=== PATIENT | female | born 1935 | race Caucasian/White ===

== ENCOUNTER 2016-05-05 11:30 | Inpatient (IN) | payer MEDICARE, OTHER ==
[~2016-05-05] VITALS: Ht 165.1 cm; Wt 68.0 kg
[2016-05-05] VITALS (7 sets, daily range): BP systolic 135–189; BP diastolic 60–79; PULSE 64–74; RESP 15–20; TEMP 97–97.8; O2SAT 94–98
[2016-05-05] MEDS ORDERED: MULTTAB24 PO (14:36)
[2016-05-05] MEDS ORDERED: CALC1WAF CHEW (14:36)
[2016-05-05] MEDS ORDERED: CELE200C PO (14:36)
[2016-05-05] MEDS ORDERED: MELO-1 PO (14:36)
[2016-05-05] MEDS ORDERED: ASPI-110 PO (14:36)
[2016-05-05] MEDS ORDERED: ATEN25TA PO (14:36)
[2016-05-05] MEDS ORDERED: PRIL20CA9 PO (14:36)
--- NOTE | 2016-05-05 14:41 | PD ---
HPI Chief Complaint: Abnormal Results Time Seen by Provider: 14:24 Travel History International Travel<30 days: No Contact w/Intl Traveler<30days: No Traveled to known affect area: No History of Present Illness HPI The patient was seen and examined in the presence of the nurse. This patient had an outpatient blood draw this morning and received a call from her physician that her blood count was around 7 and she should go directly to the emergency room. He has not noticed any melena or bleeding. Denies history of GI bleed. She had a colonoscopy many years ago but no major abnormality she can recall. sHe drinks very little alcohol and takes no blood thinners. Symptoms severity is mild. No alleviating factors. Duration one day PFSH Social History Alcohol Use: No Tobacco Use: No Substance Use: No Allergies-Medications (Allergen,Severity, Reaction): Coded Allergies: No Known Allergies (Unverified , 05/05/16) Reported Meds & Prescriptions Reported Meds & Active Scripts Active Reported Atenolol 25 Mg Tab 25 Mg PO DAILY Meloxicam 15 Mg Tab 15 Mg PO DAILY Celebrex (Celecoxib) 200 Mg Cap 200 Mg PO BID Prilosec (Omeprazole) 20 Mg Cap 20 Mg PO DAILY Multi For Her (Multiple Vitamins W/ Minerals) 1 Tab Tab 1 Tab PO DAILY Aspirin 81 (Aspirin) 81 Mg Tabdr 81 Mg PO DAILY Calcium Carbonate 500 Mg Wafr 500 Mg CHEW 500 mg calcium carbonate (200 mg elemental calcium) Review of Systems General / Constitutional: No: Fever Eyes: No: Visual changes HENT: No: Headaches Cardiovascular: No: Chest Pain or Discomfort Respiratory: No: Shortness of Breath Gastrointestinal: No: Abdominal Pain Genitourinary: No: Dysuria Musculoskeletal: No: Pain Skin: No Rash Neurologic: No: Weakness Psychiatric: No: Depression Endocrine: No: Polydipsia Hematologic/Lymphatic: No: Easy Bruising Physical Exam Narrative GENERAL: Well-nourished, well-developed patient in no apparent distress. SKIN: Warm and dry. HEAD: Atraumatic. Normocephalic. EYES: Pupils equal and round. No scleral icterus. No injection or drainage. ENT: No nasal bleeding or discharge. Mucous membranes pink and moist. NECK: Trachea midline. No JVD. CARDIOVASCULAR: Regular rate and rhythm. No murmur appreciated. RESPIRATORY: No accessory muscle use. Clear to auscultation. Breath sounds equal bilaterally. GASTROINTESTINAL: Abdomen soft, non-tender, nondistended. Hepatic and splenic margins not palpable. MUSCULOSKELETAL: No obvious deformities. No clubbing. No cyanosis. No edema. NEUROLOGICAL: Awake and alert. No obvious cranial nerve deficits. Motor grossly within normal limits. Normal speech. PSYCHIATRIC: Appropriate mood and affect; insight and judgment normal. Rectal: Normal tone, brown stool is noted. No external hemorrhoid or fissure Data Data Last Documented VS Vital Signs Date Time Temp Pulse Resp B/P Pulse Ox O2 Delivery O2 Flow Rate FiO2 05/05/16 11:33 97.7 73 15 189/79 97 Orders Basic Metabolic Panel (Bmp) (05/05/16 14:33) Complete Blood Count With Diff (05/05/16 14:33) Prothrombin Time / Inr (Pt) (05/05/16 14:33) Act Partial Throm Time (Ptt) (05/05/16 14:33) Iv Access Insert/Monitor (05/05/16 14:33) Pantoprazole Inj (Protonix Inj) (05/05/16 14:45) Sodium Chloride 0.9% Flush (Ns Flush) (05/05/16 14:45) Red Blood Cells (Rbc) (05/05/16 16:16) Blood Product Administration .UPON TRANSFUSION (05/05/16 16:16) Sodium Chlor 0.9% 250 Ml Inj (Ns 250 Ml (05/05/16 16:30) Type And Screen (05/05/16 16:16) Labs Laboratory Tests Test 05/05/16 14:40 White Blood Count 3.6 TH/MM3 Red Blood Count 3.07 MIL/MM3 Hemoglobin 7.2 GM/DL Hematocrit 23.3 % Mean Corpuscular Volume 76.0 FL Mean Corpuscular Hemoglobin 23.3 PG Mean Corpuscular Hemoglobin 30.6 % Concent Red Cell Distribution Width 16.6 % Platelet Count 237 TH/MM3 Mean Platelet Volume 9.5 FL Neutrophils (%) (Auto) 57.6 % Lymphocytes (%) (Auto) 21.6 % Monocytes (%) (Auto) 14.6 % Eosinophils (%) (Auto) 5.1 % Basophils (%) (Auto) 1.1 % Neutrophils # (Auto) 2.1 TH/MM3 Lymphocytes # (Auto) 0.8 TH/MM3 Monocytes # (Auto) 0.5 TH/MM3 Eosinophils # (Auto) 0.2 TH/MM3 Basophils # (Auto) 0.0 TH/MM3 CBC Comment AUTO DIFF Differential Comment AUTO DIFF CONFIRMED Platelet Estimate NORMAL Platelet Morphology Comment NORMAL Tear Drop Cells 1+ Ovalocytes 2+ Prothrombin Time 10.7 SEC Prothromb Time International 1.0 RATIO Ratio Activated Partial 23.8 SEC Thromboplast Time Sodium Level 139 MEQ/L Potassium Level 4.1 MEQ/L Chloride Level 105 MEQ/L Carbon Dioxide Level 27.9 MEQ/L Anion Gap 6 MEQ/L Blood Urea Nitrogen 23 MG/DL Creatinine 1.01 MG/DL Estimat Glomerular Filtration 52 ML/MIN Rate Random Glucose 105 MG/DL Calcium Level 8.5 MG/DL MDM Medical Decision Making Medical Screen Exam Complete: Yes Emergency Medical Condition: Yes Medical Record Reviewed: Yes Differential Diagnosis Diverticular bleed, internal hemorrhoid, colon cancer Narrative Course I have reviewed the patient's electronic medical record. Patient is never been here before. No prior blood draws on file. IV placed CBC shows hemoglobin of 7.2 Metabolic profile is normal Coagulation studies are normal I've ordered the patient 2 units of packed red cells. She will be admitted for GI bleed, likely upper. I reviewed with hospitalist Diagnosis Primary Impression: GI bleed Qualified Code: K92.2 - Gastrointestinal hemorrhage, unspecified gastrointestinal hemorrhage type Admitting Information Admitting Physician Requests: Admit Karsten Patel MD May 05, 2016 14:41
[2016-05-05] MEDS ORDERED: SODIUM CHLORIDE 0.9% FLUSH 5 ML FLUSH IVF PRN (14:45)
[2016-05-05] MEDS ORDERED: PANTOPRAZOLE SODIUM 40 MG VIAL IVP ONE (14:45)
[2016-05-05 15:12] LABS: AUTOMATED NEUTROPHIL # 2.1 TH/MM3 (1.8-7.7); BASOPHIL % 1.1 % (0.0-2.0); EOSINOPHIL # 0.2 TH/MM3 (0-0.4); EOSINOPHIL % 5.1 % (0.0-4.0); HEMATOCRIT 23.3 % (35.0-46.0); LYMPH % 21.6 % (9.0-44.0); LYMPHOCYTE # 0.8 TH/MM3 (1.0-4.8); MEAN CORPUSCULAR HEMOGLOBIN 23.3 PG (27.0-34.0); MEAN CORPUSCULAR HGB CONC 30.6 % (32.0-36.0); MONO % 14.6 % (0.0-8.0); NEUT % 57.6 % (16.0-70.0); PLATELET COUNT 237 TH/MM3 (150-450); RED BLOOD COUNT 3.07 MIL/MM3 (4.00-5.30); RED CELL DISTRIBUTION WIDTH 16.6 % (11.6-17.2); WHITE BLOOD COUNT 3.6 TH/MM3 (4.0-11.0)
[2016-05-05 15:26] LABS: APTT (PATIENT) 23.8 SEC (24.3-30.1); PROTHROMBIN TIME - PATIENT 10.7 SEC (9.8-11.6)
[2016-05-05 15:30] LABS: HEMO FLAGS AUTO DIFF
[2016-05-05 15:31] LABS: BICARBONATE 27.9 MEQ/L (21.0-32.0); POTASSIUM 4.1 MEQ/L (3.5-5.1)
[2016-05-05 16:06] LABS: OVALOCYTES 2+ (NORMAL); PLATELET ESTIMATE SMEAR NORMAL (NORMAL); PLATELET MORPHOLOGY NORMAL (NORMAL); SCAN/DIFF AUTO DIFF CONFIRMED; TEARDROP RBCS 1+ (NORMAL)
[2016-05-05] MEDS ORDERED: SODIUM CHLOR 0.9% 250 ML INJ 250 ML IV ONE ×2 (16:30→17:00)
--- NOTE | 2016-05-05 16:59 | HHI.HP ---
[facility] Service [facility] Primary Care Physician Aiden Alvarez MD Admission Diagnosis GI BLEED Diagnoses: (1) GI bleed (2) Symptomatic anemia Chief Complaint: Abnormal Lab Travel History International Travel<30 Days: No Contact w/Intl Traveler <30 Da: No Traveled to Known Affected Are: No History of Present Illness 81 year-old female with a history of hypertension was advised to come to the ED for evaluation of abnormal lab including low H&H. Apparently, patient was called in by her PCP secondary to hemoglobin of 7 to seek medical attention. On arrival in the ED, patient was found to have H&H of 7.2/23.3 and denies any GI bleed, hemoptysis, hematuria. However she was positive on fecal occult blood test. Patient states, she has been feeling tired lately and reports some abdominal pain described as not getting without any associated nausea and vomiting. She had a colonoscopy almost 10 years ago and was reported to be normal. She denies any chest pain or shortness of breath. Review of Systems Other Other 12 systems reviewed and negative except for the one mentioned in the history of present illness Past Family Social History Past Medical History Hypertension GERD Past Surgical History Umbilical hernia repair skin cancer removal cataract surgery Reported Medications Atenolol 25 Mg Tab 25 Mg PO DAILY Meloxicam 15 Mg Tab 15 Mg PO DAILY Celebrex (Celecoxib) 200 Mg Cap 200 Mg PO BID Prilosec (Omeprazole) 20 Mg Cap 20 Mg PO DAILY Multi For Her (Multiple Vitamins W/ Minerals) 1 Tab Tab 1 Tab PO DAILY Aspirin 81 (Aspirin) 81 Mg Tabdr 81 Mg PO DAILY Calcium Carbonate 500 Mg Wafr 500 Mg CHEW 500 mg calcium carbonate (200 mg elemental calcium) Allergies: Coded Allergies: No Known Allergies (Unverified , 05/05/16) Family History had heart disease Mother had mets of breast cancer Social History Alcohol Use: No Tobacco Use: No Substance Use: No Physical Exam Vital Signs Vital Signs Date Time Temp Pulse Resp B/P Pulse Ox O2 Delivery O2 Flow Rate FiO2 05/05/16 11:33 97.7 73 15 189/79 97 Physical Exam GENERAL: This is a well-nourished, well-developed patient, in no apparent distress. SKIN: No rashes, ecchymoses or lesions. Cool and dry. HEAD: Atraumatic. Normocephalic. No temporal or scalp tenderness. EYES: Pupils equal round and reactive. Extraocular motions intact. No scleral icterus. No injection or drainage. ENT: Nose without bleeding, purulent drainage or septal hematoma. Throat without erythema, tonsillar hypertrophy or exudate. Uvula midline. Airway patent. NECK: Trachea midline. No JVD or lymphadenopathy. Supple, nontender, no meningeal signs. CARDIOVASCULAR: Regular rate and rhythm without murmurs, gallops, or rubs. RESPIRATORY: Clear to auscultation. Breath sounds equal bilaterally. No wheezes , rales, or rhonchi. GASTROINTESTINAL: Abdomen soft, non-tender, nondistended. No hepato-splenomegaly , or palpable masses. No guarding. MUSCULOSKELETAL: Extremities without clubbing, cyanosis, or edema. No joint tenderness, effusion, or edema noted. No calf tenderness. Negative Homans sign bilaterally. NEUROLOGICAL: Awake and alert. Cranial nerves II through XII intact. Motor and sensory grossly within normal limits. Five out of 5 muscle strength in all muscle groups. Normal speech. Laboratory Laboratory Tests Test 05/05/16 14:40 White Blood Count 3.6 Red Blood Count 3.07 Hemoglobin 7.2 Hematocrit 23.3 Mean Corpuscular Volume 76.0 Mean Corpuscular Hemoglobin 23.3 Mean Corpuscular Hemoglobin 30.6 Concent Red Cell Distribution Width 16.6 Platelet Count 237 Mean Platelet Volume 9.5 Neutrophils (%) (Auto) 57.6 Lymphocytes (%) (Auto) 21.6 Monocytes (%) (Auto) 14.6 Eosinophils (%) (Auto) 5.1 Basophils (%) (Auto) 1.1 Neutrophils # (Auto) 2.1 Lymphocytes # (Auto) 0.8 Monocytes # (Auto) 0.5 Eosinophils # (Auto) 0.2 Basophils # (Auto) 0.0 CBC Comment AUTO DIFF Differential Comment AUTO DIFF CONFIRMED Platelet Estimate NORMAL Platelet Morphology Comment NORMAL Tear Drop Cells 1+ Ovalocytes 2+ Prothrombin Time 10.7 Prothromb Time International 1.0 Ratio Activated Partial 23.8 Thromboplast Time Sodium Level 139 Potassium Level 4.1 Chloride Level 105 Carbon Dioxide Level 27.9 Anion Gap 6 Blood Urea Nitrogen 23 Creatinine 1.01 Estimat Glomerular Filtration 52 Rate Random Glucose 105 Calcium Level 8.5 Result Diagram: 05/05/16 1440 05/05/16 1440 Assessment and Plan Problem List: (1) GI bleed ICD Code: K92.2 Status: Acute (2) Symptomatic anemia ICD Code: D64.9 Status: Acute (3) RA (rheumatoid arthritis) ICD Code: M06.9 Status: Acute Assessment and Plan 81-year-old female with 1-GI bleed: Likely upper GI bleed, consult gastroenterology for evaluation for EGD +/-colonoscopy. Hold aspirin, celecoxib,Mobic . Continue Protonix 40 mg IV twice a day and H&H monitoring. Keep nothing by mouth after midnight 2-Symptomatic anemia: H&H now 7.2/22.3; transfuse 2 units of red blood cell and give Lasix 10 mg 1 IV after transfusion. Check iron profile. H&H monitoring 3-Mild acute renal failure: Likely secondary to volume loss, continue to monitor BUN and creatinine. Avoid all nephrotoxic drugs 4-Hypertension: Resume Atenolol and start hydralazine by mouth when necessary 5-GERD: PPI 6-DVT prophylaxis: Chemical anti-prophylaxis is contraindicated, bilateral SCDs History of rheumatoid arthritis: Hold celecoxib; Tylenol when necessary Code Status Full code Discussed Condition With Patient, , ED physician Physician Certification 2 Midnight Certification Type: Admission for Inpatient Services Order for Inpatient Services The services are ordered in accordance with Medicare regulations or non- Medicare payer requirements, as applicable. In the case of services not specified as inpatient-only, they are appropriately provided as inpatient services in accordance with the 2-midnight benchmark. Estimated LOS (days): 2 days is the estimated time the patient will need to remain in the hospital, assuming treatment plan goals are met and no additional complications. Post-Hospital Plan: Not yet determined Problem Qualifiers (1) GI bleed: Qualified Code: K92.2 - Gastrointestinal hemorrhage, unspecified gastrointestinal hemorrhage type Jasen Stubbs MD May 05, 2016 16:59
[2016-05-05] MEDS ORDERED: ACETAMINOPHEN 325 MG TAB PO PRN ×3 (17:00)
[2016-05-05] MEDS ORDERED: ONDANSETRON HCL 4 MG/2 ML VIAL IVP PRN (17:00)
[2016-05-05] MEDS ORDERED: FUROSEMIDE 20 MG/2 ML VIAL IV ONE (17:00)
[2016-05-05] MEDS ORDERED: TEMAZEPAM 15 MG CAP PO PRN (17:00)
[2016-05-05] MEDS ORDERED: SODIUM CHLORIDE 0.9% FLUSH 5 ML FLUSH FLUSH PRN (17:00)
[2016-05-05] MEDS ORDERED: diphenhydrAMINE HCL 25 MG CAP PO PRN (17:00)
[2016-05-05] MEDS ORDERED: SENNOSIDES 8.6 MG TAB PO PRN (17:00)
[2016-05-05] MEDS ORDERED: hydrALAZINE HCL 25 MG TAB PO PRN (18:15)
[2016-05-05] MEDS ORDERED: ENALAPRILAT 1.25 MG/ML VIAL IV PUSH PRN (18:15)
[2016-05-05 20:14] LABS: TRANSFERRIN IRON PROFILE 336 MG/DL (200-360)
[2016-05-05] MEDS: PANTOPRAZOLE SODIUM 40 MG VIAL IV SCH (21:21)
[2016-05-05] MEDS: SODIUM CHLORIDE 0.9% FLUSH 5 ML FLUSH FLUSH SCH (21:22)
[2016-05-06] VITALS (9 sets, daily range): BP systolic 130–158; BP diastolic 55–77; PULSE 59–72; RESP 17–20; TEMP 97.4–98.2; O2SAT 94–99
[2016-05-06 05:25] LABS: HEMATOCRIT 26.7 % (35.0-46.0); REVIEW FLAG FINAL
[2016-05-06 05:49] LABS: ALT (GPT) 21 U/L (10-53); ANION GAP 7 MEQ/L (5-15); AST (GOT) 16 U/L (15-37); BICARBONATE 27.5 MEQ/L (21.0-32.0); BLOOD UREA NITROGEN 17 MG/DL (7-18); CHLORIDE 107 MEQ/L (98-107); GLOMERULAR FILTRATION RATE 63 ML/MIN (>89); POTASSIUM 3.7 MEQ/L (3.5-5.1); SODIUM (NA) 141 MEQ/L (136-145)
[2016-05-06 05:51] LABS: ALKALINE PHOSPHATASE 46 U/L (45-117); TOTAL BILIRUBIN ADULT 0.2 MG/DL (0.2-1.0)
[2016-05-06] MEDS: ATENOLOL 25 MG TAB PO SCH (08:20)
[2016-05-06] MEDS: PANTOPRAZOLE SODIUM 40 MG VIAL IV SCH ×2 (08:21→20:38)
[2016-05-06] MEDS: SODIUM CHLORIDE 0.9% FLUSH 5 ML FLUSH FLUSH SCH ×2 (08:21→20:38)
--- NOTE | 2016-05-06 08:58 | PD.CONS ---
HPI History of Present Illness This is a 81 year old female with history of GERD, HTN, arthiritis who was advised to come to the ED for out patient low hgb count of 7. Patient denies any previous history of anemia. On arrival, patient was found to have H&H of 7.2 /23.3 and positive on fecal occult blood test. She denies any GI bleed. She denies hematemesis, hemoptysis, hematuria, nausea, vomiting, change in bowels, diarrhea, constipation, hematochezia or melena. She denies any chest pain or shortness of breath.Reports feeling fatigue and tired lately, and having some burning stomach pain for the past 2 days. Denies alcohol intake, she is not on any blood thinner. She takes Tylenol some times alternating with a headache medicine for which she couldn't recall the name but consists of Aspirin and caffeine. She does takes Celebrex and meloxicam, states they were prescribed by 2 different physicians. She had a colonoscopy almost 10 years ago and was reported to be normal. She has GERD but that's under control with Prilosec. ( Ofe Ferguson) PFSH Past Medical History Hypertension GERD Past Surgical History Umbilical hernia repair skin cancer removal cataract surgery (Ofe Ferguson) Coded Allergies: No Known Allergies (Unverified , 05/05/16) Medications Current Medications Medications (Trade) Dose Ordered Sig/Nguyen Route Start Time Stop Time Status Last Admin (NS 250 ml Inj) 250 ml @ 15 mls/hr ONCE ONCE IV 05/05/16 16:30 05/06/16 09:09 05/05/16 21:44 (NS Flush) 2 ml UNSCH PRN FLUSH 05/05/16 17:00 (NS Flush) 2 ml BID FLUSH 05/05/16 21:00 05/06/16 08:21 (Protonix Inj) 40 mg BID IV 05/05/16 21:00 05/06/16 08:21 (Tylenol) 650 mg Q4H PRN PO 05/05/16 17:00 (Zofran Inj) 4 mg Q6H PRN IVP 05/05/16 17:00 (Senokot) 17.2 mg Q12H PRN PO 05/05/16 17:00 (Restoril) 15 mg HS PRN PO 05/05/16 17:00 Acetaminophen 650 mg 650 mg Q6H PRN PO 05/05/16 17:00 (NS 250 ml Inj) 250 ml @ 15 mls/hr ONCE ONCE IV 05/05/16 17:00 05/06/16 09:39 (Tenormin) 25 mg DAILY PO 05/06/16 09:00 05/06/16 08:20 (Apresoline) 25 mg Q8HR PRN PO 05/05/16 18:15 (Vasotec Inj) 1.25 mg Q6H PRN IV PUSH 05/05/16 18:15 Family History No family history of colon cancer Mother had mets of breast cancer Social History Alcohol Use: No Tobacco Use: No Substance Use: No (Ofe Ferguson) Review of Systems Constitutional: COMPLAINS OF: Fatigue, DENIES: Chills Endocrine: DENIES: Polyuria Eyes: DENIES: Double Vision Ears, nose, mouth, throat: DENIES: Hoarseness Respiratory: DENIES: Shortness of breath Cardiovascular: DENIES: Lower Extremity Edema Gastrointestinal: COMPLAINS OF: Abdominal pain, DENIES: Black stools, Bloody stools, Constipation, Diarrhea, Nausea, Vomiting, Difficulty Swallowing, Anorexia, Odynophagia, Swelling of Abdomen, Heartburn, Hematemesis Genitourinary: DENIES: Hematuria Musculoskeletal: DENIES: Neck pain Integumentary: DENIES: Jaundice Hematologic/lymphatic: DENIES: Bruising Immunologic/allergic: DENIES: Eczema Neurologic: DENIES: Abnormal gait Psychiatric: DENIES: Anxiety (Ofe Ferguson) GI Exam Vitals I&O Vital Signs Date Time Temp Pulse Resp B/P Pulse Ox O2 Delivery O2 Flow Rate FiO2 05/06/16 08:00 98.0 67 18 149/67 95 05/06/16 04:00 98.2 69 17 141/69 95 05/06/16 00:45 97.5 68 19 130/66 94 05/06/16 00:30 97.4 72 20 141/76 94 05/06/16 00:00 97.8 71 18 158/75 96 05/05/16 22:15 97.0 65 20 135/60 94 05/05/16 22:00 97.8 71 18 158/75 96 05/05/16 19:00 68 16 174/75 97 Room Air 05/05/16 18:00 64 16 177/71 97 Room Air 05/05/16 15:30 66 16 181/73 96 Room Air 05/05/16 13:30 74 16 144/65 98 Room Air 05/05/16 11:33 97.7 73 15 189/79 97 I/O 05/05/16 05/05/16 05/05/16 05/06/16 05/06/16 05/06/16 07:00 15:00 23:00 07:00 15:00 23:00 Intake Total 0 ml 840 ml 0 ml Balance 0 ml 840 ml 0 ml Intake Oral 0 ml 240 ml 0 ml Packed Cells 600 ml # Voids 0 2 Laboratory Test 05/05/16 05/05/16 05/06/16 14:40 19:21 04:11 White Blood Count 3.6 TH/MM3 Red Blood Count 3.07 MIL/MM3 Hemoglobin 7.2 GM/DL 8.6 GM/DL Hematocrit 23.3 % 26.7 % Mean Corpuscular Volume 76.0 FL Mean Corpuscular Hemoglobin 23.3 PG Mean Corpuscular Hemoglobin 30.6 % Concent Red Cell Distribution Width 16.6 % Platelet Count 237 TH/MM3 Mean Platelet Volume 9.5 FL Neutrophils (%) (Auto) 57.6 % Lymphocytes (%) (Auto) 21.6 % Monocytes (%) (Auto) 14.6 % Eosinophils (%) (Auto) 5.1 % Basophils (%) (Auto) 1.1 % Neutrophils # (Auto) 2.1 TH/MM3 Lymphocytes # (Auto) 0.8 TH/MM3 Monocytes # (Auto) 0.5 TH/MM3 Eosinophils # (Auto) 0.2 TH/MM3 Basophils # (Auto) 0.0 TH/MM3 CBC Comment AUTO DIFF Differential Comment AUTO DIFF CONFIRMED Platelet Estimate NORMAL Platelet Morphology Comment NORMAL Tear Drop Cells 1+ Ovalocytes 2+ Prothrombin Time 10.7 SEC Prothromb Time International 1.0 RATIO Ratio Activated Partial 23.8 SEC Thromboplast Time Sodium Level 139 MEQ/L 141 MEQ/L Potassium Level 4.1 MEQ/L 3.7 MEQ/L Chloride Level 105 MEQ/L 107 MEQ/L Carbon Dioxide Level 27.9 MEQ/L 27.5 MEQ/L Anion Gap 6 MEQ/L 7 MEQ/L Blood Urea Nitrogen 23 MG/DL 17 MG/DL Creatinine 1.01 MG/DL 0.86 MG/DL Estimat Glomerular Filtration 52 ML/MIN 63 ML/MIN Rate Random Glucose 105 MG/DL 86 MG/DL Calcium Level 8.5 MG/DL 8.6 MG/DL Iron Level 29 MCG/DL Total Iron Binding Capacity 470 MCG/DL Percent Iron Saturation 6.2 % Blood Type B POSITIVE B POSITIVE Antibody Screen NEGATIVE Crossmatch Leukocyte-Reduced Red Blood Cells Blood Bank Comment Total Bilirubin 0.2 MG/DL Aspartate Amino Transf 16 U/L (AST/SGOT) Alanine Aminotransferase 21 U/L (ALT/SGPT) Alkaline Phosphatase 46 U/L Total Protein 6.1 GM/DL Albumin 3.0 GM/DL Physical Examination HEENT: Pupils round and reactive to light; normocephalic; atraumatic; no jaundice. Throat is clear. NECK: Neck is supple, no JVD, no lymphadenopathy. CHEST: Chest is clear to auscultation and percussion. CARDIAC: Regular rate and rhythm with no murmur gallop or rubs. ABDOMEN: Soft, nondistended, nontender; no hepatosplenomegaly; bowel sounds are present in all four quadrants. EXTREMITIES: No clubbing, cyanosis, or edema. SKIN: Normal; no rash; no jaundice. 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 (Ofe Ferguson) Assessment and Plan Plan - Anemia of 7.2/ heme (+) stools- No previous history of this, no signs of bleeding, received 2 units of blood, hgb went up to 8.6 Some burning abd pain for the past 2 days, no other associated symptoms. she is not on any blood thinner. She takes Tylenol some times alternating with a headache medicine for which she couldn't recall the name but consists of Aspirin and caffeine. She does take Celebrex and meloxicam. She had a colonoscopy almost 10 years ago and was reported to be normal. She has GERD but that's under control with Prilosec. This is most likely PUD but other causes such as malignancy can't be excluded - Chronic GERD- under control with PPI - KEV- most likely secondary to volume depletion - HTN, arthritis per attending Plan: - Clear liquids - EGD/colonoscopy in the am - Golytely today - NPO mn - Cont. PPI - Monitor hh - Transfuse as needed - Supportive care - Patient seen and examined by Dr. Smith and myself and this note is written on his behalf. (Ofe Ferguson) Physician Comments Seen and examined with LINDEN, no active bleeding reported. S/p 2 units PRBC. EGD/ colonoscopy planned for tomorrow. Thank you (Ashely Smith MD) Ofe Ferguson May 06, 2016 08:58 Ashely Smith MD May 06, 2016 17:53
--- NOTE | 2016-05-06 09:53 | HHI.PR ---
Subjective Remarks Follow-up GI bleed 05/06/16-patient seen and examined; she was transfused 2 units packed red blood cells diet with improvement of H&H. Denies any GI bleed. No acute event overnight. Was seen by GI and plan for panendoscopy tomorrow. Objective Vitals Vital Signs Date Time Temp Pulse Resp B/P Pulse Ox O2 Delivery O2 Flow Rate FiO2 05/06/16 08:18 63 05/06/16 08:00 98.0 67 18 149/67 95 05/06/16 04:00 98.2 69 17 141/69 95 05/06/16 00:45 97.5 68 19 130/66 94 05/06/16 00:30 97.4 72 20 141/76 94 05/06/16 00:00 97.8 71 18 158/75 96 05/05/16 22:15 97.0 65 20 135/60 94 05/05/16 22:00 97.8 71 18 158/75 96 05/05/16 19:00 68 16 174/75 97 Room Air 05/05/16 18:00 64 16 177/71 97 Room Air 05/05/16 15:30 66 16 181/73 96 Room Air 05/05/16 13:30 74 16 144/65 98 Room Air 05/05/16 11:33 97.7 73 15 189/79 97 I/O 05/05/16 05/05/16 05/05/16 05/06/16 05/06/16 05/06/16 07:00 15:00 23:00 07:00 15:00 23:00 Intake Total 0 ml 840 ml 0 ml Balance 0 ml 840 ml 0 ml Intake Oral 0 ml 240 ml 0 ml Packed Cells 600 ml # Voids 0 2 Result Diagram: 05/06/16 04105/06/16 041 Objective Remarks GENERAL: NAD SKIN: Warm and dry. HEAD: Normocephalic. EYES: No scleral icterus. No injection or drainage. NECK: Supple, trachea midline. No JVD or lymphadenopathy. CARDIOVASCULAR: Regular rate and rhythm without murmurs, gallops, or rubs. RESPIRATORY: Breath sounds equal bilaterally. No accessory muscle use. GASTROINTESTINAL: Abdomen soft, non-tender, nondistended. MUSCULOSKELETAL: No cyanosis, or edema. BACK: Nontender without obvious deformity. No CVA tenderness. A/P Problem List: (1) GI bleed ICD Code: K92.2 Status: Acute (2) Symptomatic anemia ICD Code: D64.9 Status: Acute (3) RA (rheumatoid arthritis) ICD Code: M06.9 Status: Acute (4) Iron deficiency anemia ICD Code: D50.9 Status: Acute Assessment and Plan 81-year-old female with 1-GI bleed: Likely upper GI bleed, appreciate input from GI and plan for EGD and colonoscopy tomorrow 05/07/16. Hold aspirin, celecoxib,Mobic . Continue Protonix 40 mg IV twice a day and H&H monitoring. 2-Symptomatic anemia: H&H on admission 7.2/22.3 and now 8.6/27.7; status post transfused 2 unit packed red blood cell. Patient with evidence of LALY. H&H monitoring 3-Mild acute renal failure: Likely secondary to volume loss, continue to monitor BUN and creatinine. Avoid all nephrotoxic drugs 4-Hypertension: Continue Atenolol and start hydralazine by mouth when necessary 5-GERD: PPI 6-DVT prophylaxis: Chemical anti-prophylaxis is contraindicated, bilateral SCDs 7-Iron deficiency anemia: Will transfuse Venofer 200 mg IV 3 days starting 8-History of rheumatoid arthritis: Hold celecoxib; Tylenol when necessary Problem Qualifiers (1) GI bleed: Qualified Code: K92.2 - Gastrointestinal hemorrhage, unspecified gastrointestinal hemorrhage type Jasen Stubbs MD May 06, 2016 09:53
[2016-05-06] MEDS ORDERED: IRON SUCROSE INJ 200 MG in SODIUM CHLORIDE 0.9% INJ 100 ML IV SCH (10:00)
[2016-05-06] MEDS ORDERED: PEG (High)/E-LYTE SOLN 4000 ML BTL PO ONE (16:00)
[2016-05-06 19:47] LABS: HEMATOCRIT 31.7 % (35.0-46.0); REVIEW FLAG FINAL
[2016-05-07] VITALS (7 sets, daily range): BP systolic 144–162; BP diastolic 68–77; PULSE 61–70; RESP 16–20; TEMP 96.7–98.3; O2SAT 94–97
[2016-05-07 05:48] LABS: HEMATOCRIT 27.7 % (35.0-46.0); REVIEW FLAG FINAL
[2016-05-07] MEDS: ATENOLOL 25 MG TAB PO SCH (08:11)
[2016-05-07] MEDS: PANTOPRAZOLE SODIUM 40 MG VIAL IV SCH ×2 (08:11→21:39)
[2016-05-07] MEDS: SODIUM CHLORIDE 0.9% FLUSH 5 ML FLUSH FLUSH SCH ×2 (08:13→21:39)
--- NOTE | 2016-05-07 09:11 | HHI.PR ---
Subjective Remarks Follow-up GI bleed 05/06/16-patient seen and examined; she was transfused 2 units packed red blood cells diet with improvement of H&H. Denies any GI bleed. No acute event overnight. Was seen by GI and plan for panendoscopy tomorrow. 05/07/16-patient seen and examined, currently nothing by mouth pending a panendoscopy today. H&H stable. Denies any GI bleed overnight. Objective Vitals Vital Signs Date Time Temp Pulse Resp B/P Pulse Ox O2 Delivery O2 Flow Rate FiO2 05/07/16 08:00 97.8 69 17 152/68 94 05/07/16 04:00 97.8 70 18 158/77 97 05/07/16 00:00 97.7 66 18 147/73 95 05/06/16 20:00 97.9 63 18 154/73 96 05/06/16 16:06 98.0 60 19 154/77 99 05/06/16 11:48 97.6 59 20 131/55 95 I/O 05/06/16 05/06/16 05/06/16 05/07/16 05/07/16 05/07/16 07:00 15:00 23:00 07:00 15:00 23:00 Intake Total 840 ml 400 ml 480 ml 0 ml Output Total 400 ml 650 ml 450 ml Balance 840 ml 0 ml -170 ml -450 ml Intake Oral 240 ml 400 ml 480 ml 0 ml IV Total 0 ml 0 ml Packed Cells 600 ml Output Urine Total 400 ml 650 ml 450 ml # Voids 2 # Bowel Movements 1 4 Result Diagram: 05/07/16 0418 05/06/16 0411 Objective Remarks GENERAL: NAD SKIN: Warm and dry. HEAD: Normocephalic. EYES: No scleral icterus. No injection or drainage. NECK: Supple, trachea midline. No JVD or lymphadenopathy. CARDIOVASCULAR: Regular rate and rhythm without murmurs, gallops, or rubs. RESPIRATORY: Breath sounds equal bilaterally. No accessory muscle use. GASTROINTESTINAL: Abdomen soft, non-tender, nondistended. MUSCULOSKELETAL: No cyanosis, or edema. BACK: Nontender without obvious deformity. No CVA tenderness. A/P Problem List: (1) GI bleed ICD Code: K92.2 Status: Acute (2) Symptomatic anemia ICD Code: D64.9 Status: Acute (3) RA (rheumatoid arthritis) ICD Code: M06.9 Status: Acute (4) Iron deficiency anemia ICD Code: D50.9 Status: Acute Assessment and Plan 81-year-old female with 1-GI bleed: Likely upper GI bleed, appreciate input from GI and plan for EGD and colonoscopy today 05/07/16. Hold aspirin, celecoxib,Mobic . Continue Protonix 40 mg IV twice a day and H&H monitoring. 2-Symptomatic anemia: H&H on admission 7.2/22.3 and now 8.6/27.7; status post transfused 2 unit packed red blood cell. Patient with evidence of LALY. H&H monitoring 3-Mild acute renal failure: Likely secondary to volume loss, continue to monitor BUN and creatinine. Avoid all nephrotoxic drugs 4-Hypertension: Continue Atenolol and start hydralazine by mouth when necessary 5-GERD: PPI 6-DVT prophylaxis: Chemical anti-prophylaxis is contraindicated, bilateral SCDs 7-Iron deficiency anemia: Consider to transfuse Venofer 200 mg IV 3 days starting today 05/07/16 after panendoscopy 8-History of rheumatoid arthritis: Hold celecoxib; Tylenol when necessary Problem Qualifiers (1) GI bleed: Qualified Code: K92.2 - Gastrointestinal hemorrhage, unspecified gastrointestinal hemorrhage type Jasen Stubbs MD May 07, 2016 09:11
[2016-05-07] MEDS ORDERED: MAGNESIUM CITRATE SOLN 300 ML BTL PO ONE ×2 (12:00→18:00)
[2016-05-07] MEDS ORDERED: PROPOFOL 200 MG/20 ML AMP IV ONE (13:37)
[2016-05-07] MEDS ORDERED: DO NOT ADM ANY ANTICOAGULANT DRUGS XX PRN (14:15)
[2016-05-07] MEDS: BISACODYL EC 5 MG TABEC PO SCH ×2 (15:23→21:39)
--- NOTE | 2016-05-07 18:31 | RADRPT ---
EXAM DATE/TIME: 05/07/2016 15:51 [facility] COMPARISON: No previous studies available for comparison. INDICATIONS : Anemia FLUORO TIME: .7 minutes IMAGE COUNT: 15 CONTRAST: Entero Vu 24% Barium Sulfate (24% w/v, 20% w/w) IMAGING TIME(S): 15 min, 30 min, 45 min, 1 hr MEDICAL HISTORY : None. SURGICAL HISTORY : None. ENCOUNTER: Initial ACUITY: 1 day PAIN SCORE: 0/10 LOCATION: Bilateral abdomen FINDINGS: Preliminary film demonstrates no significantly dilated bowel. 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 There is degenerative change of the lumbar spine and the hips. The stomach is grossly unremarkable. Examination of the small bowel demonstrates normal mucosal pattern involving the jejunum and ileum. There is no evidence of mass or obstruction. No intraluminal filling defects are identified. Small bowel transit time is normal at 30 minutes. Fluoroscopy of the abdomen and terminal ileum demonstrat es no abnormality. CONCLUSION: Unremarkable small bowel examination. Leroy Madden MD on May 07, 2016 at 18:29 Board Certified Radiologist. This report was verified electronically.
[2016-05-08] VITALS: BP 142/64; PULSE 62; RESP 20; TEMP 97.9; O2SAT 93
[2016-05-08 04:00] VITALS: BP 151/65; PULSE 69; RESP 20; TEMP 98.3; O2SAT 94
[2016-05-08 05:19] LABS: BASOPHIL % 0.6 % (0.0-2.0); EOSINOPHIL % 0.2 % (0.0-4.0); HEMATOCRIT 28.6 % (35.0-46.0); LYMPH % 21.5 % (9.0-44.0); LYMPHOCYTE # 0.7 TH/MM3 (1.0-4.8); MEAN CELL VOLUME 76.2 FL (80.0-100.0); MEAN CORPUSCULAR HEMOGLOBIN 24.6 PG (27.0-34.0); MEAN CORPUSCULAR HGB CONC 32.3 % (32.0-36.0); MONO % 15.4 % (0.0-8.0); NEUT % 62.3 % (16.0-70.0); PLATELET COUNT 213 TH/MM3 (150-450); RED BLOOD COUNT 3.76 MIL/MM3 (4.00-5.30); RED CELL DISTRIBUTION WIDTH 17.1 % (11.6-17.2); WHITE BLOOD COUNT 3.3 TH/MM3 (4.0-11.0)
[2016-05-08 05:31] LABS: HEMO FLAGS AUTO DIFF
[2016-05-08] MEDS: ATENOLOL 25 MG TAB PO SCH (07:27)
[2016-05-08] MEDS: SODIUM CHLORIDE 0.9% FLUSH 5 ML FLUSH FLUSH SCH (07:28)
[2016-05-08] MEDS: PANTOPRAZOLE SODIUM 40 MG VIAL IV SCH (07:31)
[2016-05-08 08:00] VITALS: BP 159/68; PULSE 64; RESP 16; TEMP 98.5; O2SAT 97
[2016-05-08 10:10] VITALS: O2SAT 93
[2016-05-08 10:31] LABS: OVALOCYTES 1+ (NORMAL)
[2016-05-08 10:32] LABS: SCAN/DIFF AUTO DIFF CONFIRMED
[2016-05-08 12:00] VITALS: BP 155/72; PULSE 63; RESP 17; TEMP 97.8; O2SAT 92
[2016-05-08] MEDS ORDERED: ASPI81TA11 PO (13:52)
[2016-05-08] MEDS ORDERED: PROT40TA PO (13:54)
--- NOTE | 2016-05-08 13:56 | HHI.PR ---
Subjective Remarks Follow-up GI bleed 05/06/16-patient seen and examined; she was transfused 2 units packed red blood cells diet with improvement of H&H. Denies any GI bleed. No acute event overnight. Was seen by GI and plan for panendoscopy tomorrow. 05/07/16-patient seen and examined, currently nothing by mouth pending a panendoscopy today. H&H stable. Denies any GI bleed overnight. 05/08/16-patient seen and examined, she is have panendoscopy performed . Patient denies any GI bleed. However had 2 episode of loose stool today Objective Vitals Vital Signs Date Time Temp Pulse Resp B/P Pulse Ox O2 Delivery O2 Flow Rate FiO2 05/08/16 12:00 97.8 63 17 155/72 92 05/08/16 10:10 93 21 05/08/16 08:00 98.5 64 16 159/68 97 05/08/16 04:00 98.3 69 20 151/65 94 05/08/16 00:00 97.9 62 20 142/64 93 05/07/16 21:39 69 05/07/16 20:00 97.6 69 20 144/74 94 05/07/16 16:00 96.7 61 17 162/76 95 05/07/16 14:30 98.4 62 14 147/76 100 05/07/16 14:15 61 15 149/81 100 05/07/16 14:02 98.2 62 14 137/67 100 I/O 05/07/16 05/07/16 05/07/16 05/08/16 05/08/16 05/08/16 07:00 15:00 23:00 07:00 15:00 23:00 Intake Total 0 ml 225 ml 0 ml 120 ml Output Total 450 ml 400 ml 600 ml 800 ml Balance -450 ml -175 ml -600 ml -680 ml Intake Oral 0 ml 0 ml 0 ml 120 ml IV Total 25 ml 0 ml 0 ml Other 200 ml Output Urine Total 450 ml 400 ml 600 ml 800 ml # Bowel Movements 0 Result Diagram: 05/08/16 0449 05/06/16 0411 Imaging Last Impressions Small Bowel X-Ray 05/07/16 0000 Signed Impressions: Service Date/Time: Saturday, May 07, 2016 15:51 - CONCLUSION: Unremarkable small bowel examination. Leroy Madden MD Objective Remarks GENERAL: NAD SKIN: Warm and dry. HEAD: Normocephalic. EYES: No scleral icterus. No injection or drainage. NECK: Supple, trachea midline. No JVD or lymphadenopathy. CARDIOVASCULAR: Regular rate and rhythm without murmurs, gallops, or rubs. RESPIRATORY: Breath sounds equal bilaterally. No accessory muscle use. GASTROINTESTINAL: Abdomen soft, non-tender, nondistended. MUSCULOSKELETAL: No cyanosis, or edema. BACK: Nontender without obvious deformity. No CVA tenderness. Procedures Panendoscopy 05/07/16 A/P Problem List: (1) GI bleed ICD Code: K92.2 Status: Acute (2) Symptomatic anemia ICD Code: D64.9 Status: Acute (3) RA (rheumatoid arthritis) ICD Code: M06.9 Status: Acute (4) Iron deficiency anemia ICD Code: D50.9 Status: Acute Assessment and Plan 81-year-old female with 1-GI bleed: Likely upper GI bleed, appreciate input from GI and s/p EGD and colonoscopy 05/07/16 with finding of gastritis, Hiatal Hernia, Internal hemorrhoid and rectal polyp for which she is s/p polypectomy. Hold aspirin, celecoxib,Mobic . Continue Protonix 40 mg IV twice a day and H&H monitoring. 2-Symptomatic anemia: H&H on admission 7.2/22.3 and now 8.6/27.7; status post transfused 2 unit packed red blood cell. Patient with evidence of LALY. H&H monitoring 3-Mild acute renal failure: Likely secondary to volume loss, continue to monitor BUN and creatinine. Avoid all nephrotoxic drugs 4-Hypertension: Continue Atenolol and start hydralazine by mouth when necessary 5-GERD: PPI 6-DVT prophylaxis: Chemical anti-prophylaxis is contraindicated, bilateral SCDs 7-History of rheumatoid arthritis: Hold celecoxib; Tylenol when necessary Discharge Planning Discharge home Problem Qualifiers (1) GI bleed: Qualified Code: K92.2 - Gastrointestinal hemorrhage, unspecified gastrointestinal hemorrhage type Jasen Stubbs MD May 08, 2016 13:56
--- NOTE | 2016-05-08 14:01 | HHI.DS ---
Discharge Summary Admission Date May 05, 2016 at 16:42 Discharge Date: May 08, 2016 Admitting Diagnosis GI BLEED (1) GI bleed ICD Code: K92.2 (2) Symptomatic anemia ICD Code: D64.9 (3) RA (rheumatoid arthritis) ICD Code: M06.9 (4) Iron deficiency anemia ICD Code: D50.9 Procedures Panendoscopy 05/07/16 Brief History - From Admission 81 year-old female with a history of hypertension was advised to come to the ED for evaluation of abnormal lab including low H&H. Apparently, patient was called in by her PCP secondary to hemoglobin of 7 to seek medical attention. On arrival in the ED, patient was found to have H&H of 7.2/23.3 and denies any GI bleed, hemoptysis, hematuria. However she was positive on fecal occult blood test. Patient states, she has been feeling tired lately and reports some abdominal pain described as not getting without any associated nausea and vomiting. She had a colonoscopy almost 10 years ago and was reported to be normal. She denies any chest pain or shortness of breath. CBC/BMP: 05/08/16 0449 05/06/16 0411 Significant Findings Laboratory Tests Test 05/05/16 05/06/16 05/06/16 05/07/16 14:40 04:11 19:07 04:18 White Blood Count 3.6 TH/MM3 (4.0-11.0) Red Blood Count 3.07 MIL/MM3 (4.00-5.30) Hemoglobin 7.2 GM/DL 8.6 GM/DL 10.1 GM/DL 8.8 GM/DL (11.6-15.3) (11.6-15.3) (11.6-15.3) (11.6-15.3) Hematocrit 23.3 % 26.7 % 31.7 % 27.7 % (35.0-46.0) (35.0-46.0) (35.0-46.0) (35.0-46.0) Mean Corpuscular Volume 76.0 FL (80.0-100.0) Mean Corpuscular Hemoglobin 23.3 PG (27.0-34.0) Mean Corpuscular Hemoglobin 30.6 % Concent (32.0-36.0) Monocytes (%) (Auto) 14.6 % (0.0-8.0) Eosinophils (%) (Auto) 5.1 % (0.0-4.0) Lymphocytes # (Auto) 0.8 TH/MM3 (1.0-4.8) Tear Drop Cells 1+ (NORMAL) Ovalocytes 2+ (NORMAL) Activated Partial 23.8 SEC Thromboplast Time (24.3-30.1) Blood Urea Nitrogen 23 MG/DL (7-18) Creatinine 1.01 MG/DL (0.50-1.00) Estimat Glomerular Filtration 52 ML/MIN (>89) 63 ML/MIN (>89) Rate Iron Level 29 MCG/DL (50-170) Total Iron Binding Capacity 470 MCG/DL (250-450) Percent Iron Saturation 6.2 % (20-50) Total Protein 6.1 GM/DL (6.4-8.2) Albumin 3.0 GM/DL (3.4-5.0) Test 05/08/16 04:49 White Blood Count 3.3 TH/MM3 (4.0-11.0) Red Blood Count 3.76 MIL/MM3 (4.00-5.30) Hemoglobin 9.3 GM/DL (11.6-15.3) Hematocrit 28.6 % (35.0-46.0) Mean Corpuscular Volume 76.2 FL (80.0-100.0) Mean Corpuscular Hemoglobin 24.6 PG (27.0-34.0) Monocytes (%) (Auto) 15.4 % (0.0-8.0) Lymphocytes # (Auto) 0.7 TH/MM3 (1.0-4.8) Ovalocytes 1+ (NORMAL) Imaging Last Impressions Small Bowel X-Ray 05/07/16 0000 Signed Impressions: Service Date/Time: Saturday, May 07, 2016 15:51 - CONCLUSION: Unremarkable small bowel examination. Leroy Madden MD PE at Discharge GENERAL: NAD SKIN: Warm and dry. HEAD: Normocephalic. EYES: No scleral icterus. No injection or drainage. NECK: Supple, trachea midline. No JVD or lymphadenopathy. CARDIOVASCULAR: Regular rate and rhythm without murmurs, gallops, or rubs. RESPIRATORY: Breath sounds equal bilaterally. No accessory muscle use. GASTROINTESTINAL: Abdomen soft, non-tender, nondistended. MUSCULOSKELETAL: No cyanosis, or edema. BACK: Nontender without obvious deformity. No CVA tenderness. Hospital Course Patient admitted secondary to symptomatic anemia for which she was transfused 2 units packed red blood cell monitor H&H. GI was consulted secondary to GI bleed and patient was started on IV Protonix. She underwent panendoscopy on . Patient renal function improved with gentle IV fluid hydration, and she was continued on her oral antihypertensive medications and remained normotensive throughout. Physical therapy was consulted. DVT and GI prophylaxis were provided. Prior to discharge and vitals remained stable. Pt Condition on Discharge: Stable Discharge Disposition: Discharge Home Discharge Time: <= 30 minutes Discharge Instructions DIET: Follow Instructions for: Heart Healthy Diet Activities you can perform: Regular-No Restrictions Follow up Referrals: Gastroenterology - 2 Weeks with Ashely Smith MD PCP Follow-up - 1 Week New Medications: Aspirin DR (Aspirin EC) 81 Mg Tabdr 81 MG PO DAILY Stroke Prevention #30 Ref 0 TAB Pantoprazole (Protonix) 40 Mg Tab 40 MG PO DAILY Reflux #30 Ref 0 TAB Continued Medications: Atenolol (Atenolol) 25 Mg Tab 25 MG PO DAILY Blood Pressure Management #30 TAB Calcium Carbonate (Calcium Carbonate) 500 Mg Wafr 500 MG CHEW 500 mg calcium carbonate (200 mg elemental calcium) Calcium Supplement Ref 0 WAFER Multiple Vitamins W/ Minerals (Multi For Her) 1 Tab Tab 1 TAB PO DAILY Discontinued Medications: Aspirin DR (Aspirin 81) 81 Mg Tabdr 81 MG PO DAILY Ref 0 TAB Celecoxib (Celebrex) 200 Mg Cap 200 MG PO BID Pain Management Ref 0 CAP Meloxicam (Meloxicam) 15 Mg Tab 15 MG PO DAILY Arthritis Pain #30 Ref 0 TAB Omeprazole (Prilosec) 20 Mg Cap 20 MG PO DAILY #30 Ref 0 CAP Jasen Stubbs MD May 08, 2016 14:01
--- NOTE | 2016-05-09 23:33 | EKG ---
Date Performed: 05/06/2016 Time Performed: 13:58:55 PTAGE: 81 years EKG: Sinus rhythm RIGHT BUNDLE BRANCH BLOCK ABNORMAL ECG NO PREVIOUS TRACING DOCTOR: Tho Ramon Interpretating Date/Time 05/09/2016 23:31:25
== END 2016-05-08 17:35 | disposition home or self-care (01) | DRG 378 ==
LOC: NEPA 11:30 → NEDA 16:42 → N07B 21:32
PROVIDERS: ADMIT Hospitalist; ATTEND Hospitalist
PROC: 0DB68ZX Excision of Stomach, Via Natural or Artificial Opening Endoscopic, Diagnostic (ICD-10-PCS; principal; 2016-05-07 13:18)
PROC: 0DBP8ZZ Excision of Rectum, Via Natural or Artificial Opening Endoscopic (ICD-10-PCS; 2016-05-07 13:18)
DX: K92.2 Gastrointestinal hemorrhage, unspecified (principal); D50.0 Iron deficiency anemia secondary to blood loss (chronic); N17.9 Acute kidney failure, unspecified; E86.9 Volume depletion, unspecified; M06.9 Rheumatoid arthritis, unspecified; K64.8 Other hemorrhoids; K64.4 Residual hemorrhoidal skin tags; I10 Essential (primary) hypertension; K21.9 Gastro-esophageal reflux disease without esophagitis; M19.90 Unspecified osteoarthritis, unspecified site
CPT/HCPCS: 36430; 74250; 80048; 80053; 83540; 83550; 85014; 85018; 85025; 85610; 85730; 86850; 86900; 86901; 86920; 88305; 88312; 93005; 96374; C9113; J1940; J7050; P9016

== ENCOUNTER → 2016-06-07 | Day surgery (SDC) | payer MEDICARE, OTHER ==
[~2016-06-07] MED LIST: ACETAMINOPHEN/HYDROcodone 325 MG/5 MG TAB ONE; ASPI81TA11 PO; ATEN25TA PO; BUPIVACAINE/EPINEPHRINE 0.5% PF 30 ML VIAL ONE; CALC1WAF CHEW; LACTATED RINGER'S 1000 ML INJ 1,000 ML ONE; MIDAZOLAM HCL 2 MG/2 ML VIAL ONE; MULTTAB24 PO; ONDANSETRON HCL 4 MG/2 ML VIAL IV PUSH ONE; PROPOFOL 200 MG/20 ML AMP IV ONE; PROT40TA PO; TRIAMCINOLONE ACETONIDE 40 MG/ML VIAL ONE; ceFAZolin INJ 1,000 MG VIAL ONE
--- NOTE | 2016-06-08 06:10 | MP ---
cc: WIL FRIAS DATE OF SURGERY June 07, 2016. PREOPERATIVE DIAGNOSIS Left knee lateral meniscal tear. POSTOPERATIVE DIAGNOSES 1. Left knee lateral meniscal tear. 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 SURGEON Wil Frias MD FREIGHT ELEVATOR OPERATOR LINDEN Rosado The surgical procedure was assisted by my Advanced Registered Nurse Practitioner. My EXECUTIVE SERVICES ADMINISTRATOR's presence was necessary throughout this case for the manipulation and positioning of the surgical extremity. My EXECUTIVE SERVICES ADMINISTRATOR was assisting me throughout the duration of this procedure. The skill set of an Advanced Registered Nurse Practitioner was medically necessary to complete this procedure. During the surgical case, the surgical technician was working at the back table and the Advanced Registered Nurse Practitioner was directly assisting me. PROCEDURES Left knee arthroscopic partial lateral meniscectomy with chondroplasty of the medial femoral condyle. ESTIMATED BLOOD LOSS Minimal. TOURNIQUET TIME 0 minutes. PROCEDURE The patient was brought back to the operative theater. General anesthesia was administered. She received intravenous Ancef. The left lower extremities was prepped and draped in usual sterile fashion. We made a standard inferolateral portal, followed by inferomedial portal with spinal needle visualization. We found minimal synovitis within the suprapatellar pouch. There was grade 2 chondromalacia noted of both the patella and the trochlea diffusely. No chondroplasty was necessary. The medial compartment revealed diffuse grade 2 to grade 3 chondromalacia, mostly with thinning. There was only a small area in the anterolateral aspect of the medial femoral condyle that required a chondroplasty to remove only small unstable segments of cartilage. There was a divot noticed within the medial tibial plateau of focal grade 2-3 chondromalacia. We did smoothed this down a little bit to help with the contour but did not remove very much cartilage. There was no medial meniscal tear noted. The lateral compartment showed that the lateral femoral condyle did not have significant chondromalacia. There was a very small peripheral tear in the posterior horn midbody region which was debrided with an oscillating shaver. We then found a complex significant tear of the anterior horn of the lateral meniscus with portions of the meniscus subluxing into the joint. We used an oscillating shaver to perform a partial lateral meniscectomy or this area, moving essentially the entire anterior horn. Overall about 30% of the meniscus was removed. There were no loose bodies in the medial or lateral gutters. Fluid was evacuated from the knee. Intraarticular injection of 0.25% Marcaine with epinephrine was given with 40 mg of Kenalog. The arthroscopic portals were closed with 2-0 Vicryl, followed by 3-0 nylon. Postoperative plan is early range of motion and weightbearing. MD JULEE Terry/JEWEL /1:34 PM /5:54 AM
== END | disposition home or self-care (01) ==
LOC: ESDC 11:25
PROVIDERS: ATTEND Orthopaedic Surgery
DX: S83.272A Complex tear of lateral meniscus, current injury, left knee, initial encounter (principal); M94.262 Chondromalacia, left knee
CPT/HCPCS: 01400; 29881; J0690; J2250; J2405; J3010; J3301; J7120

== ENCOUNTER → 2017-01-10 | Outpatient (CLI) | payer MEDICARE, OTHER ==
[~2017-01-10] MED LIST changes: -ACETAMINOPHEN/HYDROcodone 325 MG/5 MG TAB ONE; -BUPIVACAINE/EPINEPHRINE 0.5% PF 30 ML VIAL ONE; +CALC1TAB87 PO; +CHLO1TAB23 PO; -LACTATED RINGER'S 1000 ML INJ 1,000 ML ONE; +LEVO.15 PO; -MIDAZOLAM HCL 2 MG/2 ML VIAL ONE; -ONDANSETRON HCL 4 MG/2 ML VIAL IV PUSH ONE; -PROPOFOL 200 MG/20 ML AMP IV ONE; -TRIAMCINOLONE ACETONIDE 40 MG/ML VIAL ONE; -ceFAZolin INJ 1,000 MG VIAL ONE
[2017-01-10 09:47] LABS: AUTOMATED NEUTROPHIL # 1.6 TH/MM3 (1.8-7.7); BASOPHIL # 0.1 TH/MM3 (0-0.2); BASOPHIL % 1.7 % (0.0-2.0); EOSINOPHIL # 0.2 TH/MM3 (0-0.4); EOSINOPHIL % 6.4 % (0.0-4.0); HEMATOCRIT 34.4 % (35.0-46.0); HEMO FLAGS DIFF FINAL; LYMPH % 26.6 % (9.0-44.0); LYMPHOCYTE # 0.8 TH/MM3 (1.0-4.8); MEAN CELL VOLUME 76.8 FL (80.0-100.0); MEAN CORPUSCULAR HEMOGLOBIN 23.8 PG (27.0-34.0); MEAN CORPUSCULAR HGB CONC 30.9 % (32.0-36.0); MONO % 13.7 % (0.0-8.0); NEUT % 51.6 % (16.0-70.0); PLATELET COUNT 203 TH/MM3 (150-450); RED BLOOD COUNT 4.48 MIL/MM3 (4.00-5.30); RED CELL DISTRIBUTION WIDTH 17.1 % (11.6-17.2)
[2017-01-10 09:56] LABS: APTT (PATIENT) 25.3 SEC (24.3-30.1); PROTHROMBIN TIME - PATIENT 10.5 SEC (9.8-11.6)
[2017-01-10 09:59] LABS: BACTERIA, URINE MANY /hpf; BLOOD, URINE NEG (NEG); GLUCOSE,URINE NEG (NEG); KETONE, URINE NEG (NEG); NITRITE,URINE POS (NEG); URINE COLOR YELLOW (YELLW/STRAW)
[2017-01-10 10:00] LABS: COMMENT (UR) CATH-CULTURE IND; CULTURE IF INDICATED CATH CULTURE IND
[2017-01-10 10:11] LABS: ANION GAP 4 MEQ/L (5-15); AST (GOT) 19 U/L (15-37); BICARBONATE 31.5 MEQ/L (21.0-32.0); BLOOD UREA NITROGEN 20 MG/DL (7-18); CHLORIDE 103 MEQ/L (98-107); GLOMERULAR FILTRATION RATE 48 ML/MIN (>89); GLUCOSE,FASTING 96 MG/DL (74-99); POTASSIUM 4.4 MEQ/L (3.5-5.1); SODIUM (NA) 138 MEQ/L (136-145)
[2017-01-10 10:13] LABS: ALT (GPT) 16 U/L (10-53)
[2017-01-10 10:14] LABS: ALKALINE PHOSPHATASE 63 U/L (45-117); TOTAL BILIRUBIN ADULT LESS THAN 0.1 MG/DL (0.2-1.0)
--- NOTE | 2017-01-11 15:45 | EKG ---
Date Performed: 01/10/2017 Time Performed: 09:35:04 PTAGE: 81 years EKG: Sinus rhythm RIGHT BUNDLE BRANCH BLOCK ABNORMAL ECG PREVIOUS TRACING : 05/06/2016 13.58 Compared to prior tracing no significant change DOCTOR: Alice Gibbs Interpretating Date/Time 01/11/2017 15:42:59
== END ==
LOC: CPRE 09:02
PROVIDERS: ATTEND Surgery
DX: Z01.810 Encounter for preprocedural cardiovascular examination (principal); Z01.812 Encounter for preprocedural laboratory examination; R94.31 Abnormal electrocardiogram [ECG] [EKG]; B96.20 Unspecified Escherichia coli [E. coli] as the cause of diseases classified elsewhere
CPT/HCPCS: 36415; 80053; 81001; 85025; 85610; 85730; 87077; 87086; 87186; 93005

== ENCOUNTER 2017-01-16 08:00 | Inpatient (IN) | payer MEDICARE, OTHER ==
[~2017-01-16] VITALS: Ht 162.6 cm; Wt 66.0 kg
[~2017-01-16 08:00] MED LIST changes: -CALC1WAF CHEW
--- NOTE | 2017-02-08 16:32 | MH ---
cc: Jake LE M.D. DATE OF ADMISSION 02/13/2017 REASON FOR ADMISSION Osteoarthritic degeneration left hip now being admitted for left total hip arthroplasty. 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 PAST MEDICAL HISTORY Other past history: 1. The patient has a history of anesthetic problems. 2. Skin cancer in the past. 3. Thyroid problems. 4. Hypertension. 5. Hernia repair. PAST SURGICAL HISTORY Other previous surgeries include: 1. Arthroscopic surgery of the left knee. 2. Hernia repair. 3. Thyroidectomy. MEDICATIONS 1. She finished up her antibiotics for urinary tract infection which is now clear. 2. She takes atenolol. 3. Synthroid. 4. Pantoprazole. 5. Vitamins. 6. Calcium. 7. Tumeric. SOCIAL HISTORY She does not smoke or drink. REVIEW OF SYSTEMS Noncontributory. FAMILY HISTORY Noncontributory. ALLERGIES She had no known allergies. PHYSICAL EXAMINATION GENERAL: We find an 81-year-old female well-developed, well-nourished, alert and oriented times three complaining of pain in her left hip and knee. VITAL SIGNS: Blood pressure 144/78, pulse 65 and regular, respirations 18, temperature 97.9, pulse oximetry 97% on room air. HEENT: Eyes PERRL, EOMI. Ears, nose, mouth clear. NECK: Supple. LUNGS: Clear. HEART: Regular rate. ABDOMEN: Soft. Positive bowel sounds, nontender. EXTREMITIES: Reveal the left hip to have decreased range of motion. She is neurovascularly intact her toes. IMPRESSION At this time is severe, painful, osteoarthritic degeneration of the left hip. PLAN Admission for left total hip arthroplasty today. The patient given prescription for postoperative pain and anticoagulant control in the office. She understands to use Hibiclens scrub and Bactroban preoperatively and plans on going home with home health care after surgical discharge. MD JOSESITO Hargrove/CHRISTINE /3:51 PM /4:14 PM
[2017-02-09] MEDS ORDERED: CRANCAP2 PO (14:22)
[2017-02-13] MEDS ORDERED: ceFAZolin 2 GM PREMIX 50 ML IV SCH (08:15)
[2017-02-13] MEDS ORDERED: METOPROLOL TARTRATE 25 MG TAB PO PRN (08:15)
[2017-02-13] MEDS ORDERED: INSULIN HUMAN REGULAR 1,000 UNITS/10 ML VIAL SQ PRN (08:15)
[2017-02-13] MEDS ORDERED: LACTATED RINGER'S 1000 ML IV PRN (08:15)
[2017-02-13] MEDS ORDERED: POVIDONE IODINE 5% (ANTISEPSIS KIT) 4 APPLICATIONS EACH NARE PRN (08:15)
[2017-02-13] MEDS ORDERED: SODIUM CHLORID 0.9% 500 ML IV PRN (08:15)
[2017-02-13] MEDS ORDERED: CHLORHEXIDINE GLUCONATE 2 % 1 PACK (2 CLOTHS) TOPICAL PRN (08:15)
[2017-02-13] MEDS ORDERED: VANCOMYCIN 1000 MG/NS 250 ML (for <70 kg) IV SCH ×2 (08:15)
[2017-02-13] MEDS ORDERED: CHLORHEXIDINE GLUCONATE 4% SOLN 120 ML BTL TOPICAL SCH (08:15)
--- NOTE | 2017-02-13 08:28 | HHI.FF ---
Face to Face Verification Diagnosis: (1) Status post total replacement of left hip Physical Therapy Gait training Hip: Total hip, Protocol: Left, Posterior hip precautions, Abduction pillow while in bed, Progress to weight bearing Canvas Knee Splint: When in bed & 2 pillows btw thighs Nursing RN: 3 days/week x 2 weeks Dressing Changes: Do not change dressing I have seen patient Kary Chaves on 02/13/17. My clinical findings support the need for the requested home health care services because: Limited ability to care for self High risk of falls I certify that my clinical findings support that this patient is homebound because: Unsteady gait/balance Jake Medina MD Feb 13, 2017 08:28
[2017-02-13] MEDS ORDERED: ADJUSTABLE COMM1 MIS (08:29)
[2017-02-13] MEDS ORDERED: WALKER WHEELS/F1 MIS (08:29)
[2017-02-13] MEDS ORDERED: NALOXONE HCL 0.4 MG/ML AMP IV PUSH PRN (08:30)
[2017-02-13] MEDS ORDERED: BISACODYL 10 MG SUPP RECTAL PRN (08:30)
[2017-02-13] MEDS ORDERED: SODIUM CHLORIDE 0.9% FLUSH 5 ML FLUSH IVF PRN (08:30)
[2017-02-13] MEDS ORDERED: TRANEXAMIC ACID INJ 0 MG in SODIUM CHLORIDE 0.9% INJ 100 ML IV SCH (08:30)
[2017-02-13] MEDS ORDERED: ACETAMINOPHEN 325 MG TAB PO PRN (08:30)
[2017-02-13] MEDS ORDERED: MISCELLANEOUS NURSING INFORMATION XX PRN (08:30)
[2017-02-13] MEDS ORDERED: MORPHINE SULFATE 8 MG/ML INJ IV PUSH PRN (08:30)
[2017-02-13] MEDS ORDERED: ONDANSETRON HCL 4 MG/2 ML VIAL IVP PRN (08:30)
[2017-02-13] MEDS: ATENOLOL 25 MG TAB PO SCH (09:00)
[2017-02-13] MEDS ORDERED: ASPIRIN EC 81 MG TABEC PO SCH (09:00)
[2017-02-13] MEDS ORDERED: MULTIPLE VITAMINS PO SCH (09:00)
[2017-02-13] MEDS: PANTOPRAZOLE SOD 40 MG DELAYED RELEASE TAB PO SCH (09:00)
[2017-02-13] MEDS ORDERED: MINERALS PO SCH (09:00)
[2017-02-13] MEDS ORDERED: CALCIUM/VITAMIN D 250 MG/125 U TAB PO SCH (09:00)
[2017-02-13] MEDS ORDERED: NON-FORMULARY DRUG (Vitamins C & E (Cranberry Urinary Comfort) 1 CAP) PO SCH (09:00)
[2017-02-13] MEDS ORDERED: ceFAZolin INJ 1,000 MG VIAL ONE (09:26)
[2017-02-13 09:28] LABS: BASOPHIL % 1.3 % (0.0-2.0); EOSINOPHIL # 0.1 TH/MM3 (0-0.4); EOSINOPHIL % 4.1 % (0.0-4.0); HEMATOCRIT 31.4 % (35.0-46.0); HEMO FLAGS DIFF FINAL; LYMPH % 22.3 % (9.0-44.0); LYMPHOCYTE # 0.8 TH/MM3 (1.0-4.8); MEAN CELL VOLUME 76.6 FL (80.0-100.0); MEAN CORPUSCULAR HEMOGLOBIN 24.2 PG (27.0-34.0); MEAN CORPUSCULAR HGB CONC 31.5 % (32.0-36.0); MONO % 13.2 % (0.0-8.0); NEUT % 59.1 % (16.0-70.0); PLATELET COUNT 229 TH/MM3 (150-450); RED BLOOD COUNT 4.09 MIL/MM3 (4.00-5.30); RED CELL DISTRIBUTION WIDTH 15.7 % (11.6-17.2); WHITE BLOOD COUNT 3.5 TH/MM3 (4.0-11.0)
[2017-02-13] MEDS ORDERED: TRANEXAMIC ACID IV SCH ×2 (10:00→13:00)
[2017-02-13] MEDS ORDERED: SODIUM CHLORIDE 0.9% IV SCH ×2 (10:00→13:00)
[2017-02-13] MEDS ORDERED: EXPAREL PERI-ARTICULAR INJECTION (TOTAL VOL. 120 ML) P-ARTICULR SCH ×2 (10:00)
[2017-02-13] MEDS: LEVOTHYROXINE SODIUM 150 MCG TAB PO SCH (13:00)
[2017-02-13] MEDS: APIXABAN 2.5 MG TABLET PO SCH ×2 (13:00→21:26)
[2017-02-13 14:13] LABS: HEMATOCRIT 25.6 % (35.0-46.0); REVIEW FLAG FINAL
[2017-02-13] MEDS ORDERED: Post-op Orders (for Pharmacy) MISC XX ONE (14:26)
--- NOTE | 2017-02-13 14:37 | HHI.PR ---
Immediate Post Op Note Procedure Date: Feb 13, 2017 Pre Op Diagnosis: Osteoarthritic degeneration left hip Post Op Diagnosis: Osteoarthritic degeneration left hip Surgeon: Jake Medina MD Safety Relief Valve Technician(s): Leilani CHEATHAM Procedure: Left total Hip Arthroplasty Complications: none Specimen(s) removed: none Estimated blood loss: 300cc Anesthesia: Spinal Drains: None IVF Urinary Output (mLs): 0 (no shanks) Tourniquet time (min at mmHg) none Patient to: PACU Patient Condition: Good Implant/Devices: SEE IMPLANT LOG (if applicable) Date/Time of Procedure: SEE SURGICAL CARE RECORD Leilani Vargas Feb 13, 2017 14:37
[2017-02-13] MEDS ORDERED: *morphine SULFATE 8 MG/ML PERIprocedure ONLY ONE ×2 (14:58→15:57)
[2017-02-13] MEDS: LACTATED RINGER'S 1000 ML INJ 1,000 ML IV SCH ×2 (15:00→20:52)
--- NOTE | 2017-02-13 15:01 | MP ---
cc: Jake MEDINA M.D. DATE OF SURGERY: 02/13/2017 PREOPERATIVE DIAGNOSIS Osteoarthritic degeneration, left hip. POSTOPERATIVE DIAGNOSIS Osteoarthritic degeneration, left hip. SURGERY PERFORMED Left total hip arthroplasty using Aesculap components, size 8 stem, size 50 cup with a 6.5 x 32-mm screw, 32 liner and a standard stem with a 32 mm short head. No cement utilized. SURGEON Dr. Medina. CONTACT LENS POLISHER LINDEN Zapata ANESTHESIA Spinal. PROCEDURE: The patient was brought to the Operating Room, where after successful induction of spinal anesthesia was placed on the operating room table in the left lateral decubitus position. The left hip, thigh and leg were prepped and draped in the usual manner. A posterolateral approach was then utilized by making an incision over the proximal portion of the femur lateral aspect, carried across the greater trochanter, carried posterior in a curved incision toward the buttock. The incision was carried down through the subcutaneous tissue, through the fibers of the tensor fascia ayanna and gluteus roberto to expose the greater trochanteric bursa. This was then removed by sharp and blunt dissection. The hip was then internally rotated to expose the insertions of the short external rotators of the hip and were incised at their insertion into the greater trochanter and reflected posterior to protect the sciatic nerve. These were held with a Charnley retractor to better visualize the hip joint. The capsule was identified and removed by sharp dissection. The hip was then dislocated by internal rotation and flexion of the hip. The femoral calcar was then measured using the trial components for the appropriate length cut of the neck using an oscillating saw. After the cut was made the head was removed. The acetabulum was then approached and measured, the acetabulum reamed with the acetabular reamers. Next, the femoral calcar was approached by first inserting a canal finder followed by rigid reamers, followed by a cookie-cutter to the appropriate size, in this case being a #15. The broach was left in place and a planer used to plane the calcar to a smooth finish. The broach was then removed. The trial components were then inserted into place, the hip reduced, found to track smoothly with no evidence of subluxation or dislocation. All trial components were removed. The wound was irrigated copiously with antibiotic solution and Water Pik. The actual components were then inserted and impacted into place using the aforementioned components. The hip was reduced, found to track smoothly with no evidence of subluxation or dislocation. The wound was irrigated copiously with antibiotic solution, meticulous hemostasis achieved. The remains of the capsule was approximated using interrupted #1 Vicryl suture, 60 ccs of Exparel was used around the anterior hip joint staying away from the sciatic nerve which was identified and protected throughout the procedure. The deep fascia was approximated with running #2 Quill, subcutaneous tissue approximated using interrupted 2-0 and 3-0 Monocryl suture and Primapore sterile dressing. No drain utilized. Estimated blood loss 300 ccs. Sponge and suture count correct. The patient tolerated the procedure well and left the operating room in satisfactory condition. LINDEN Zapata was present during the entire procedure to include patient positioning and the procedure. The medical necessity of nurse practitioner team assistant was indicated in this case due to the surgical complexity of the case itself. During the surgical case the surgical supplies sterilizer was working the back table while my surgical specialist LINDEN was directly assisting me. J. MD JOSESITO Kent/MARK ANTHONY /2:32 PM /2:35 PM
--- NOTE | 2017-02-13 15:44 | RADRPT ---
EXAM DATE/TIME: 02/13/2017 15:01 [facility] COMPARISON: No previous studies available for comparison. INDICATIONS : Post op left hip. MEDICAL HISTORY : None. SURGICAL HISTORY : None. ENCOUNTER: Initial ACUITY: 1 day PAIN SCORE: Non-responsive. LOCATION: Left hip. FINDINGS: The patient is status post a total hip arthroplasty with a bipolar prosthesis. Prosthesis is well-sea jonathan. Alignment is anatomic. A fracture is not appreciated. CONCLUSION: Anatomic alignment. Catarino Mustafa MD FACR Board Certified Radiologist. This report was verified electronically.
[2017-02-13 16:15] VITALS: BP 136/62; PULSE 61; RESP 18; TEMP 96.2; O2SAT 94
[2017-02-13] MEDS: ACETAMINOPHEN/HYDROcodone 325 MG/7.5 MG TAB PO PRN ×2 (17:18→21:28)
[2017-02-13] MEDS: CALCIUM/VITAMIN D 250 MG/125 U TAB PO SCH ×2 (17:59→21:23)
[2017-02-13 18:37] LABS: TRANSFERRIN IRON PROFILE 293 MG/DL (200-360)
[2017-02-13 18:40] LABS: FERRITIN 17 NG/ML (8-252)
[2017-02-13] MEDS ORDERED: [UNRECOGNIZED DRUG - REMARK] PO SCH (21:00)
[2017-02-13] MEDS ORDERED: TEMAZEPAM 15 MG CAP PO PRN (21:00)
[2017-02-13 21:15] VITALS: BP 134/70; PULSE 79; RESP 18; TEMP 96; O2SAT 96
[2017-02-13] MEDS: SODIUM CHLORIDE 0.9% FLUSH 5 ML FLUSH IVF SCH (21:24)
[2017-02-14] VITALS (9 sets, daily range): BP systolic 114–151; BP diastolic 53–70; PULSE 80–93; RESP 16–18; TEMP 96.3–100.4; O2SAT 93–97
[2017-02-14] MEDS: ACETAMINOPHEN/HYDROcodone 325 MG/7.5 MG TAB PO PRN ×5 (03:31→23:12)
[2017-02-14] MEDS: LEVOTHYROXINE SODIUM 150 MCG TAB PO SCH (05:31)
[2017-02-14 05:48] LABS: HEMATOCRIT 22.7 % (35.0-46.0); REVIEW FLAG FINAL
[2017-02-14] MEDS: ATENOLOL 25 MG TAB PO SCH (08:23)
[2017-02-14] MEDS: CALCIUM/VITAMIN D 250 MG/125 U TAB PO SCH ×4 (08:24→23:09)
[2017-02-14] MEDS: SODIUM CHLORIDE 0.9% FLUSH 5 ML FLUSH IVF SCH ×2 (08:24→23:10)
[2017-02-14] MEDS: PANTOPRAZOLE SOD 40 MG DELAYED RELEASE TAB PO SCH (08:24)
[2017-02-14] MEDS: LACTATED RINGER'S 1000 ML INJ 1,000 ML IV SCH ×2 (09:22→21:52)
--- NOTE | 2017-02-14 09:46 | PD.ORT.PN ---
Subjective Subjective Remarks Pt having some pain at present. Also feels she needs to move soon to prevent bed sores. Objective Vitals Vital Signs Date Time Temp Pulse Resp B/P (MAP) Pulse Ox O2 Delivery O2 Flow Rate FiO2 02/14/17 08:09 100.2 93 18 151/68 (95) 93 02/14/17 05:07 100.4 93 18 147/70 (95) 93 02/14/17 01:14 97.9 82 18 125/61 (82) 96 02/13/17 21:15 96.0 79 18 134/70 (91) 96 02/13/17 16:15 96.2 61 18 136/62 (86) 94 02/13/17 16:10 97.5 69 17 113/53 (73) 100 Room Air 02/13/17 15:45 69 15 107/52 (70) 100 Room Air 02/13/17 15:30 66 15 124/59 (80) 100 Room Air 02/13/17 15:15 67 17 92/51 (65) 100 Room Air 02/13/17 15:00 60 15 94/48 (63) 100 Room Air 02/13/17 14:45 60 16 100/55 (70) 100 Room Air 02/13/17 14:33 96.2 60 17 107/54 (71) 100 Room Air I/O 02/13/17 02/13/17 02/13/17 02/14/17 02/14/17 02/14/17 07:00 15:00 23:00 07:00 15:00 23:00 Intake Total 1000 ml 340 ml 440 ml Output Total 300 ml 0 ml Balance 700 ml 340 ml 440 ml Intake IV Total 340 ml 440 ml Other 1000 ml Output Urine Total 0 ml Estimated Blood Loss 300 ml # Voids 1 1 Result Diagram: 02/14/17 0530 Objective Remarks NV intact to toes. No calf tenderness. In bed at present time eating breakfast. Assessment & Plan Ortho Post Op Day #: 1 Problem List: Assessment and Plan Low Hct. Transfuse blood if ok with medical. OOB with PT. Plan home in 2-3 days if ok with PT and stable. Jake Medina MD Feb 14, 2017 09:46
[2017-02-14] MEDS ORDERED: INFLUENZA VIRUS VACCINE (QUADRIVALENT) 0.5 ML SYR IM ONE (10:00)
[2017-02-14] MEDS ORDERED: PNEUMOCOCCAL POLYVALENT INJ 25 MCG/0.5 ML SYR IM ONE (10:00)
[2017-02-14] MEDS ORDERED: ASPIRIN EC 81 MG TABEC PO SCH ×2 (13:00→14:00)
[2017-02-14] MEDS: APIXABAN 2.5 MG TABLET PO SCH (13:55)
--- NOTE | 2017-02-14 14:16 | PD.CONS ---
HPI Service [facility] Hospitalists Consult Requested By Dr. Medina Reason for Consult medical management Primary Care Physician Aiden Alvarez MD Diagnoses: History of Present Illness Patient is an 81-year-old female with past medical history of hypertension, prior history of GI bleed secondary to NSAID use, and hypothyroidism (s/p total thyroidectomy) is admitted to the orthopedic surgery for Left total hip arthroplasty . She is postoperative day 1. Hospitalist service has been consulted for anemia and medical management. Patient tells me that she had chronic left knee pain for which she had tried conservative management and even the left knee arthroscopy done. However when she saw Dr. 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 She decided to opt for surgical intervention. Patient currently has some pain postop but it's tolerable. Patient admits to some lightheadedness this morning upon trying to get up. Any chest pain, palpitation, nausea or vomiting. Denies any abdominal pain, burning with urination. Patient is about to go to her physical therapy class. No other complaints at this time. Review of Systems Except as stated in HPI: all other systems reviewed are Neg Past Family Social History Allergies: Coded Allergies: No Known Allergies (Unverified Allergy, Unknown, 02/13/17) Past Medical History hypertension, prior history of GI bleed secondary to NSAID use, and hypothyroidism (s/p total thyroidectomy) Past Surgical History Thyroidectomy, left knee arthroscopy, left hip arthroplasty Reported Medications Reported Meds & Active Scripts Active Protonix (Pantoprazole Sodium) 40 Mg Tab 40 Mg PO DAILY Aspirin EC (Aspirin) 81 Mg Tabdr 81 Mg PO DAILY Reported Cranberry Urinary Comfort (Vitamins C & E) 1 Cap 1 Cap PO DAILY Calcium 600 with Vitamin D (Calcium Carbonate-Cholecalciferol) 600-400 mg-Unit Tab 1 Tab PO QID Synthroid (Levothyroxine Sodium) 150 Mcg Tab 150 Mcg PO DAILY Atenolol 25 Mg Tab 25 Mg PO DAILY Multi For Her (Multiple Vitamins W/ Minerals) 1 Tab Tab 1 Tab PO DAILY Family History Mother had metastatic breast cancer and father had heart disease Social History denies any smoking history, drinks wine occasionally, denies any illegal drug use. Physical Exam Vital Signs Vital Signs Date Time Temp Pulse Resp B/P (MAP) Pulse Ox O2 Delivery O2 Flow Rate FiO2 02/14/17 13:26 18 02/14/17 12:07 97.2 80 18 114/57 (76) 93 02/14/17 08:09 100.2 93 18 151/68 (95) 93 02/14/17 05:07 100.4 93 18 147/70 (95) 93 02/14/17 01:14 97.9 82 18 125/61 (82) 96 02/13/17 21:15 96.0 79 18 134/70 (91) 96 02/13/17 16:15 96.2 61 18 136/62 (86) 94 02/13/17 16:10 97.5 69 17 113/53 (73) 100 Room Air 02/13/17 15:45 69 15 107/52 (70) 100 Room Air 02/13/17 15:30 66 15 124/59 (80) 100 Room Air 02/13/17 15:15 67 17 92/51 (65) 100 Room Air 02/13/17 15:00 60 15 94/48 (63) 100 Room Air 02/13/17 14:45 60 16 100/55 (70) 100 Room Air 02/13/17 14:33 96.2 60 17 107/54 (71) 100 Room Air Physical Exam GENERAL: This is an elderly female, sitting on wheelchair. SKIN: No rashes, ecchymoses or lesions. Cool and dry. HEAD: Atraumatic. Normocephalic. No temporal or scalp tenderness. EYES: Extraocular motions intact. No scleral icterus. No injection or drainage. ENT: Nose without drainage. Airway patent. NECK: Trachea midline. CARDIOVASCULAR: Regular rate and rhythm with 1/6 LIZABETH RESPIRATORY: Clear to auscultation. Breath sounds equal bilaterally. No wheezes GASTROINTESTINAL: Abdomen nondistended. No guarding. MUSCULOSKELETAL: Extremities without edema. able to wiggle her toes, sensation is intact, <2sec cap refill. NEUROLOGICAL: Awake and alert. Motor and sensory grossly within normal limits on other extremities. Normal speech. Laboratory Laboratory Tests Test 02/13/17 17:15 02/14/17 05:30 Iron Level 21 Total Iron Binding Capacity 410 Percent Iron Saturation 5.1 Ferritin 17 Hemoglobin 7.2 Hematocrit 22.7 Result Diagram: 02/14/17529 Imaging Last Impressions Hip X-Ray 02/13/17821 Signed Impressions: Service Date/Time: Monday, February 13, 2017 15:01 - CONCLUSION: Anatomic alignment. Catarino Mustafa MD Assessment and Plan Assessment and Plan Left total knee arthroplasty. Postoperative day 1, antibiotics, DVT prophylaxis , pain management, and rehabilitation per orthopedic surgery. Medications for bowel regimen as needed. Postop anemia: Hemoglobin found to be 7.2. Prior to surgery was 9.9. In December her hemoglobin was 10.6. Pt did feel lightheaded this morning therefore will go ahead and transfuse 1 unit PRBC now. Pt is agreeable w plan. Monitor and recheck Hb post transfusion and in AM. Hypothyroidism: on home synthroid. HTN: on home atenolol. hx of GI bleed: continue protonix. Post op fever: Tmax 100.4. Most likely atelectasis. Encourage use of IS q1hr while awake. DVT proph: on eliquis per Ortho Thank you for allowing to take part of Mrs Chaves's care, I will continue to follow. Code Status full code Discussed Condition With patient, RN and pt's Lizzy Corral MD Feb 14, 2017 14:16
[2017-02-14] MEDS ORDERED: SODIUM CHLOR 0.9% 250 ML INJ 250 ML IV ONE (14:30)
[2017-02-14] MEDS: DOCUSATE SODIUM 100 MG CAP PO SCH ×2 (23:09→23:17)
[2017-02-14] MEDS: MAGNESIUM HYDROXIDE SUSP 30 ML CUP PO PRN (23:09)
[2017-02-14] MEDS: MULTIVITAMINS/MINERALS THERAPEUTIC TAB PO SCH (23:09)
[2017-02-15 02:05] VITALS: BP 135/60; PULSE 86; RESP 17; TEMP 99; O2SAT 95
[2017-02-15] MEDS: APIXABAN 2.5 MG TABLET PO SCH ×2 (02:07→12:39)
[2017-02-15] MEDS: LEVOTHYROXINE SODIUM 150 MCG TAB PO SCH (04:22)
[2017-02-15] MEDS: ACETAMINOPHEN/HYDROcodone 325 MG/7.5 MG TAB PO PRN ×5 (04:22→22:45)
[2017-02-15 04:25] VITALS: BP 133/62; PULSE 80; RESP 17; TEMP 99; O2SAT 95
[2017-02-15] MEDS: PANTOPRAZOLE SOD 40 MG DELAYED RELEASE TAB PO SCH (07:48)
[2017-02-15] MEDS: ATENOLOL 25 MG TAB PO SCH (07:48)
[2017-02-15] MEDS: MAGNESIUM HYDROXIDE SUSP 30 ML CUP PO PRN ×2 (07:48→22:43)
[2017-02-15] MEDS: MULTIVITAMINS/MINERALS THERAPEUTIC TAB PO SCH ×2 (07:48→22:45)
[2017-02-15] MEDS: CALCIUM/VITAMIN D 250 MG/125 U TAB PO SCH ×4 (07:48→22:45)
[2017-02-15] MEDS: DOCUSATE SODIUM 100 MG CAP PO SCH ×2 (07:49→22:45)
[2017-02-15] MEDS: SODIUM CHLORIDE 0.9% FLUSH 5 ML FLUSH IVF SCH ×2 (07:49→22:46)
--- NOTE | 2017-02-15 07:49 | PD.ORT.PN ---
Subjective Subjective Remarks Pt comfortable today. No complaints. Objective Vitals Vital Signs Date Time Temp Pulse Resp B/P (MAP) Pulse Ox O2 Delivery O2 Flow Rate FiO2 02/15/17 04:25 99.0 80 17 133/62 (85) 95 02/15/17 02:05 99.0 86 17 135/60 95 02/14/17 23:29 100.1 84 17 143/59 97 02/14/17 23:10 99.8 86 16 133/56 97 02/14/17 19:25 96.3 83 18 130/54 (79) 97 02/14/17 16:10 96 21 02/14/17 16:00 98.1 85 16 127/53 (77) 96 02/14/17 13:26 18 02/14/17 12:07 97.2 80 18 114/57 (76) 93 02/14/17 08:09 100.2 93 18 151/68 (95) 93 I/O 02/14/17 02/14/17 02/14/17 02/15/17 02/15/17 02/15/17 07:00 15:00 23:00 07:00 15:00 23:00 Intake Total 440 ml 480 ml 240 ml 710 ml Balance 440 ml 480 ml 240 ml 710 ml Intake Oral 480 ml 240 ml 240 ml IV Total 440 ml 50 ml Packed Cells 400 ml Blood Product IV Normal Saline Flush 20 ml # Voids 1 2 2 1 # Bowel Movements 0 0 0 Result Diagram: 02/14/17 0530 Objective Remarks NV intact to toes. No calf tenderness. In bed at present time awaiting breakfast. Assessment & Plan Ortho Post Op Day #: 2 Problem List: Assessment and Plan For transfer to SNF tomorrow if ok with medical. Jake Medina MD Feb 15, 2017 07:49
[2017-02-15 07:59] VITALS: BP 140/63; PULSE 79; RESP 18; TEMP 97.6; O2SAT 96
[2017-02-15] MEDS: LACTATED RINGER'S 1000 ML INJ 1,000 ML IV SCH ×2 (10:22→22:46)
[2017-02-15 10:50] LABS: HEMATOCRIT 25.5 % (35.0-46.0); REVIEW FLAG FINAL
[2017-02-15 11:47] VITALS: BP 96/41; PULSE 73; RESP 18; TEMP 97.7; O2SAT 96
--- NOTE | 2017-02-15 13:22 | HHI.PR ---
Subjective Remarks feeling well. no lightheadedness or dizziness. no CP/SOB/N/V pain not present when she moves but does get it w movement but it is well controlled. Objective Vitals Vital Signs Date Time Temp Pulse Resp B/P (MAP) Pulse Ox O2 Delivery O2 Flow Rate FiO2 02/15/17 11:47 97.7 73 18 96/41 (59) 96 02/15/17 09:29 18 02/15/17 07:59 97.6 79 18 140/63 (88) 96 02/15/17 04:25 99.0 80 17 133/62 (85) 95 02/15/17 02:05 99.0 86 17 135/60 95 02/14/17 23:29 100.1 84 17 143/59 97 02/14/17 23:10 99.8 86 16 133/56 97 02/14/17 19:25 96.3 83 18 130/54 (79) 97 02/14/17 16:10 96 21 02/14/17 16:00 98.1 85 16 127/53 (77) 96 I/O 02/14/17 02/14/17 02/14/17 02/15/17 02/15/17 02/15/17 07:00 15:00 23:00 07:00 15:00 23:00 Intake Total 440 ml 480 ml 240 ml 710 ml Balance 440 ml 480 ml 240 ml 710 ml Intake Oral 480 ml 240 ml 240 ml IV Total 440 ml 50 ml Packed Cells 400 ml Blood Product IV Normal Saline Flush 20 ml # Voids 1 2 2 1 # Bowel Movements 0 0 0 Result Diagram: 02/15/17 1010 Imaging Last Impressions Hip X-Ray 02/13/17 0822 Signed Impressions: Service Date/Time: Monday, February 13, 2017 15:01 - CONCLUSION: Anatomic alignment. Catarino Mustafa MD Objective Remarks GENERAL: This is an elderly female, sitting on wheelchair. EYES: Extraocular motions intact. ENT: Nose without drainage. Airway patent. NECK: Trachea midline. CARDIOVASCULAR: Regular rate and rhythm with 1/6 LIZABETH RESPIRATORY: Clear to auscultation. Breath sounds equal bilaterally. No wheezes GASTROINTESTINAL: Abdomen nondistended. No guarding. MUSCULOSKELETAL: Extremities without edema. able to wiggle her toes, sensation is intact, <2sec cap refill. NEUROLOGICAL: Awake and alert. Motor and sensory grossly within normal limits on other extremities. Normal speech A/P Assessment and Plan Left total knee arthroplasty. Postoperative day 2, antibiotics, DVT prophylaxis , pain management, and rehabilitation per orthopedic surgery. Medications for bowel regimen as needed. Postop anemia: Hemoglobin found to be 7.2, post surgery. s/p 1 units PRBC. Hb today is 8.5. Currently asymptomatic. Monitor and recheck Hb in AM. Hypothyroidism: on home synthroid. HTN: on home atenolol. hx of GI bleed: continue protonix. Post op fever: Tmax 100.1 last night. Most likely atelectasis/post op fever. Encourage use of IS q1hr while awake which pt has been doing. DVT proph: on eliquis per Ortho Discharge Planning per primary team Lizzy Corral MD Feb 15, 2017 13:22
[2017-02-15 15:35] VITALS: BP 115/58; PULSE 88; RESP 20; TEMP 97.5; O2SAT 98
[2017-02-15 19:20] VITALS: BP 145/65; PULSE 90; RESP 18; TEMP 100.3; O2SAT 96
[2017-02-16 00:16] VITALS: BP 164/72; PULSE 95; RESP 17; TEMP 100.1; O2SAT 96
[2017-02-16] MEDS: APIXABAN 2.5 MG TABLET PO SCH ×2 (02:43→13:52)
[2017-02-16] MEDS: ACETAMINOPHEN/HYDROcodone 325 MG/7.5 MG TAB PO PRN ×3 (02:44→12:02)
[2017-02-16 04:19] VITALS: BP 113/55; PULSE 80; RESP 18; TEMP 98.9; O2SAT 95
[2017-02-16] MEDS: LEVOTHYROXINE SODIUM 150 MCG TAB PO SCH (06:02)
[2017-02-16 08:00] VITALS: BP 150/65; PULSE 79; RESP 18; TEMP 97.6; O2SAT 97
[2017-02-16] MEDS: SODIUM CHLORIDE 0.9% FLUSH 5 ML FLUSH IVF SCH (09:10)
[2017-02-16] MEDS: CALCIUM/VITAMIN D 250 MG/125 U TAB PO SCH ×2 (09:10→12:02)
[2017-02-16] MEDS: PANTOPRAZOLE SOD 40 MG DELAYED RELEASE TAB PO SCH (09:10)
[2017-02-16] MEDS: MULTIVITAMINS/MINERALS THERAPEUTIC TAB PO SCH (09:10)
[2017-02-16] MEDS: DOCUSATE SODIUM 100 MG CAP PO SCH (09:10)
[2017-02-16] MEDS: ATENOLOL 25 MG TAB PO SCH (09:10)
[2017-02-16] MEDS ORDERED: HYDR-3580 PO (10:34)
[2017-02-16] MEDS ORDERED: APIX2.5T PO (11:08)
[2017-02-16] MEDS: LACTATED RINGER'S 1000 ML INJ 1,000 ML IV SCH (11:22)
[2017-02-16 12:00] VITALS: BP 127/57; PULSE 77; RESP 18; TEMP 98; O2SAT 97
--- NOTE | 2017-02-16 12:53 | HHI.PR ---
Subjective Remarks Patient seen and examined this morning around 11 AM. Says she's feeling well. Walking around room. She denies any chest pain or shortness breath. Denies any nausea or vomiting. Objective Vital Signs Date Time Temp Pulse Resp B/P (MAP) Pulse Ox O2 Delivery O2 Flow Rate FiO2 02/16/17 08:00 97.6 79 18 150/65 (93) 97 02/16/17 04:19 98.9 80 18 113/55 (74) 95 02/16/17 00:16 100.1 95 17 164/72 (102) 96 02/15/17 19:20 100.3 90 18 145/65 (91) 96 02/15/17 17:39 18 02/15/17 15:35 97.5 88 20 115/58 (77) 98 I/O 02/15/17 02/15/17 02/15/17 02/16/17 02/16/17 02/16/17 07:00 15:00 23:00 07:00 15:00 23:00 Intake Total 710 ml 350 ml 240 ml 240 ml Balance 710 ml 350 ml 240 ml 240 ml Intake Oral 240 ml 350 ml 240 ml 240 ml IV Total 50 ml Packed Cells 400 ml Blood Product IV Normal Saline Flush 20 ml # Voids 1 2 2 1 # Bowel Movements 0 0 0 0 Result Diagram: 02/15/17 1010 Objective Remarks GENERAL: Patient standing in room using walker. Appears comfortable. SKIN: Warm and dry. HEAD: Normocephalic. EYES: No scleral icterus. No injection or drainage. NECK: No JVD. MUSCULOSKELETAL: No cyanosis, or edema. A/P Assessment and Plan Left total knee arthroplasty. Postoperative day 2, antibiotics, DVT prophylaxis , pain management, and rehabilitation per orthopedic surgery. Medications for bowel regimen as needed. //Postoperative constipation. Secondary to narcotics. Laxatives ordered. Postop anemia: Hemoglobin found to be 7.2, post surgery. s/p 1 units PRBC. Hb today is 8.5. Currently asymptomatic. Monitor and recheck Hb in AM. = 02/16. Hemoglobin yesterday 8.5 and improved after transfusion. No signs of bleeding. Hypothyroidism: on home synthroid. HTN: on home atenolol. hx of GI bleed: continue protonix. Post op fever: Tmax 100.1 overnight again.. Most likely atelectasis/post op fever. Encourage use of IS q1hr while awake which pt has been doing. No nicko fevers. Continue incentive spirometer. DVT proph: on eliquis per Ortho Discharge Planning Patient clear for discharge to rehabilitation. Recommend she get renal function checked in the next few days. Lul Dave MD Feb 16, 2017 12:53
[2017-02-16] MEDS ORDERED: DOCUSATE SODIUM 50 MG/SENNA 8.6 MG TAB PO ONE (13:00)
[2017-02-16] MEDS ORDERED: MAGNESIUM HYDROXIDE SUSP 30 ML CUP PO ONE (13:00)
--- NOTE | 2017-02-16 21:57 | HHI.DS ---
Discharge Summary Admission Date Feb 13, 2017 at 07:16 Discharge Date: Feb 16, 2017 Admitting Diagnosis osteoarthritic degeneration left hip Diagnosis: (1) Status post total replacement of left hip Diagnosis: Principal ICD Codes: Z96.642 - Presence of left artificial hip joint Brief History This is a 81 year old female patient CBC/BMP: 02/15/17 1010 Significant Findings Laboratory Tests Test 02/14/17 05:30 02/15/17 10:10 Hemoglobin 7.2 GM/DL (11.6-15.3) 8.5 GM/DL (11.6-15.3) Hematocrit 22.7 % (35.0-46.0) 25.5 % (35.0-46.0) PE at Discharge NV intact to toes. No calf tenderness. In bed at present time awaiting breakfast. Hospital Course Patient underwent a total left hip arthroplasty on day of admission. She received a course of prophylactic IV antibiotics and within 23 hours started on anticoagulation therapy. She continued to improve with PT and PO pain meds but received a blood transfusion on POD #1 for low hct. She continued to improve and was discharged to SNF on POD #3 in good condition for continuation of care. Pt Condition on Discharge: Good Discharge Disposition: Discharge to SNF Discharge Instructions Diet Instructions: As Tolerated, No Restrictions Activities You Can Perform: Full Weight Bearing, Shower Only-No Bath Activities to Avoid: Bathing, Driving Jake Medina MD Feb 16, 2017 21:57
== END 2017-02-16 13:59 | DRG 470 ==
LOC: HSDI 02-13 07:16 → N06B 02-13 16:18
PROVIDERS: ADMIT Surgery; ATTEND Surgery
PROC: 30253N1 (ICD-10-PCS; 2017-02-13)
PROC: 0SRB0JA Replacement of Left Hip Joint with Synthetic Substitute, Uncemented, Open Approach (ICD-10-PCS; principal; 2017-02-13 11:51)
DX: M16.12 Unilateral primary osteoarthritis, left hip (principal); D64.9 Anemia, unspecified; R50.82 Postprocedural fever; I10 Essential (primary) hypertension; J98.11 Atelectasis; E89.0 Postprocedural hypothyroidism; G89.29 Other chronic pain; M25.562 Pain in left knee; K59.00 Constipation, unspecified; Z85.828 Personal history of other malignant neoplasm of skin; Z96.652 Presence of left artificial knee joint
CPT/HCPCS: 36430; 73501; 82728; 83540; 83550; 85014; 85018; 85025; 86850; 86900; 86901; 86920; 90686; 90732; 94150; C9290; J0690; J2270; J3370; J7050; J7120; L1830; P9016; Q2038